=== PATIENT | female | born 1985 | race Caucasian/White ===

== ENCOUNTER → 2019-02-06 | Outpatient (CLI) | payer MEDICARE, SELFPAY | PROVIDERS: Family Provider Nurse Practitioner; Visit Provider Psychiatry & Neurology Psychiatry | DX: F43.12 Post-traumatic stress disorder, chronic (principal); F33.2 Major depressive disorder, recurrent severe without psychotic features; F12.20 Cannabis dependence, uncomplicated ==

== ENCOUNTER 2019-02-25 08:13 | Emergency (ER) | payer MEDICARE, MEDICAID, SELFPAY ==
[2019-02-25 08:15] VITALS: BP 119/74; PULSE 83; RESP 16; TEMP 36.8; O2SAT 94; BMI 44.2
--- NOTE | 2019-02-25 08:16 | ED_ITS ---
HPI - Dental/Oral General: Chief complaint: Dental/Oral Stated complaint: dental abscess Time Seen by Provider: 02/25/19 08:16 Source: patient Mode of arrival: ambulatory Limitations: no limitations History of Present Illness: HPI Narrative: here for R upper dental pain/swelling x yesterday MD Complaint: tooth pain Teeth map: 1. Onset (ago): day(s) Duration: constant Relieving factors: nothing Exacerbating factors: nothing Context: history of dental caries and poor dental care Associated symptoms: Denies ear or mastoid pain, fever(s) or painful swallowing Treatment prior to arrival: oral analgesic Review of Systems Const: Denies: fever, chills, body aches or fatigue Eyes: Denies: change in vision, blurry vision, photophobia, eye discomfort or eye discharge ENMT: Reports: dental pain and other (R facial swelling ); Denies: throat pain, enlarged tonsils, painful swallowing, swelling of lips/tongue, oral sores/lesions, ear pain, ear discharge, nasal discharge, nasal congestion, post nasal drip or facial/sinus pain Resp: Denies: productive cough or non-productive cough GI: Denies: nausea, vomiting or difficulty swallowing Neuro: Denies: headache All/Imm: Denies: facial swelling or seasonal allergies PFSH ED PFSH: Statuses (acute, chronic, etc) shown below reflect problem list status as previously entered and may not be historically accurate Social History Smoking and tobacco status: former smoker Physical Exam Const: COMMON NORMALS: no apparent distress, oriented x3, alert and well nourished HENMT: COMMON NORMALS: normocephalic, head/scalp atraumatic, hearing grossly normal bilaterally, external ears normal, EAC's normal, TM's normal bilaterally, external nose normal, nasal mucous membranes and turbinates normal and moist oral mucous membranes HEAD & SCALP: normocephalic and atraumatic NOSE: external nose normal and nasal mucous membranes and turbinates normal EXTERNAL EAR: Yes external ears normal EXTERNAL AUDITORY CANAL: EAC's normal TYMPANIC MEMBRANE: TM's normal bilaterally TEETH & GINGIVA: Yes other (TTP L upper dentition and gingiva; mild swelling to R face; no cellulitis ) THROAT: posterior oropharynx normal, tonsils normal and uvula midline Lymph: LYMPHATIC: no lymphadenopathy noted Neuro: COMMON NORMALS: oriented x3 SENSORIUM/ORIENTATION: Yes alert Course Vital Signs: Vital signs: Vital Signs Temperature 98.2 F 02/25/19 08:15 Pulse Rate 83 02/25/19 08:15 Respiratory Rate 16 02/25/19 08:15 Blood Pressure 119/74 02/25/19 08:15 Pulse Oximetry 94 02/25/19 08:15 Discharge Plan Discharge Patient Disposition: Home, Self-Care Clinical Impression: Dental caries, Dental abscess Condition: Stable Prescriptions: New clindamycin HCl 300 mg capsule 300 mg PO Q6H 7 Days Qty: 28 RF: 0 Discharge Orders: Discharge Order (Routine); Ordered 02/25/19 Ordered By: Lashanda Sutton Discharge Diet: Advance as tolerated Patient Instructions: Dental Abscess (ED), Dental Caries (ED) Activity Restrictions/Additional Instructions: FOLLOW UP WITH A DENTIST. CAN RETURN TO ED FOR WORSENING SWELLING/PAIN DESPITE ANTIBIOTICS X 48 HOURS. Coding Level of Care Code ED Construction Administrative Assistant for Tavo Cevallos
[2019-02-25] MEDS: clindamycin 150 mg/mL SDV 6 mL 600 MG IM (08:37)
[2019-02-25] MEDS: ketorolac 30 mg/mL INJ IM (09:11)
[2019-02-25] MEDS: ondansetron 4 MG Tablet PO (09:11)
[2019-02-25 09:43] VITALS: PULSE 66; RESP 18; O2SAT 96
== END 2019-02-25 09:44 | disposition home or self-care (01) ==
LOC: ER 09:01
PROVIDERS: Emergency Provider Physician Assistant; Family Provider Nurse Practitioner; PCP Nurse Practitioner
DX: K04.7 Periapical abscess without sinus (principal); K02.9 Dental caries, unspecified; Z87.891 Personal history of nicotine dependence
CPT/HCPCS: 96372; 99281; J1885; J3490; Q0162

== ENCOUNTER 2019-03-08 09:56 | Inpatient (IN) | payer MEDICARE, MEDICAID, SELFPAY ==
[2019-03-08 09:59] VITALS: BP 128/82; PULSE 82; RESP 18; TEMP 36.4; O2SAT 99; BMI 47.8
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
[2019-03-08 10:45] LABS: HCG Qualitative Urine. Negative (Negative)
[2019-03-08 10:51] LABS: Add Urine Microscopic? YES; Bilirubin Urine Neg (NEGATIVE); Blood Urine 3+ (Negative); Glucose Urine UA Norm (Normal); Ketones Urine 1+ (Negative); Leukocyte Esterase Urine Negative (Negative); Nitrate Urine Negative (Negative); Protein Urine Neg (Negative); Specific Gravity, Urine 1.015 (1.005-1.030); Urine Appearance Hazy (CLEAR); Urine Color Straw (Yellow); Urobilinogen Urine Norm (Negative); pH Urine 6 (5-7)
[2019-03-08 10:52] LABS: RBC Urine 40-50 /hpf (0-2)
[2019-03-08 10:53] LABS: Add Urine Culture? Yes; Bacteria Urine 1+; Mucus Urine 1+; WBC Urine 0-4 /hpf (0-5)
[2019-03-08 10:54] LABS: Basophils % 0.4 %; Eosinophils # 0.1 10^3/uL (0.0-0.8); Eosinophils % 1.3 %; Hematocrit 40.3 % (37.0-47.0); Lymphocytes # 1.3 10^3/uL (0.8-4.8); Lymphocytes % 23.7 %; Mean Corpuscular HGB Conc 32.3 g/dL (30.0-36.0); Mean Corpuscular Hemoglobin 31.7 pg (28.0-34.0); Mean Corpuscular Volume 98.3 fL (81-99); Mean Platelet Volume 11.2 fL (7.4-10.4); Monocytes # 0.4 10^3/uL (0.2-0.9); Monocytes % 7.4 %; Neutrophils # 3.7 10^3/uL (1.8-7.7); Neutrophils % 66.8 %; Nucleated Red Blood Cells % 0 %; Platelet Count 226 10^3/cmm (130-400); Red Cell Distribution Width 12.1 % (12.1-15.1); White Blood Count 5.5 10^3/uL (4.0-10.0)
[2019-03-08 11:10] LABS: Amphetamines Screen Urine Negative (Negative); Barbiturates Screen Urine Negative (Negative); Benzodiazepines Screen Urine Negative (Negative); Cocaine Screen Urine Negative (Negative); Opiate Screen Urine Negative (Negative); PCP Screen Urine Negative (Negative); THC Screen Urine Negative (Negative)
[2019-03-08 11:18] LABS: Alanine Aminotransferase 21 U/L (0-33); Albumin Level 4.4 g/dL (3.5-5.2); Alkaline Phosphatase 74 IU/L (35-105); Anion Gap 13.8 (5-19); Aspartate Amino Transferase 19 U/L (0-32); Blood Urea Nitrogen 12 mg/dL (6-20); Calcium 9.4 mg/Dl (8.6-10.0); Carbon Dioxide 28 mmol/L (22-29); Chloride 100 mmol/L (98-107); Globulin 2.4 g/dL (1.3-4.6); Glomerular Filtration Rate 97.6 mL/min (90-130); Glucose 98 mg/dL (74-109); Potassium 3.8 mmol/L (3.5-5.1); Sodium 138 mmol/L (136-145); Total Bilirubin 0.6 mg/dL (0.15-1.2); Total Protein 6.8 g/dL (6.6-8.7)
--- NOTE | 2019-03-08 11:18 | ECG_ITS ---
Measurements Intervals [place] Rate: 95 P: 39 KS: 172 QRS: 31 QRSD: 89 T: 14 QT: 375 QTc: 473 SINUS RHYTHM Compared to ECG 07/05/2018 13:18:38 Sinus arrhythmia no longer present Electronically Signed On 03-09-2019 17:26:04 [place] by Obi Lee M.D. [email or web address]
--- NOTE | 2019-03-08 11:18 | PC.NURSE ---
Pt reporting chest pain and Dr. BEVERLEY informed. EKG ordered.
[2019-03-08 11:25] VITALS: RESP 18
[2019-03-08 11:26] LABS: Acetaminophen < 5.0 ug/mL (10-30); Alcohol Level < 10 mg/dL (0-10); Salicylate < 0.3 mg/dL (3-10)
[2019-03-08 12:51] VITALS: BP 97/55; PULSE 66; RESP 18; TEMP 36.6; O2SAT 98
[2019-03-08 13:12] VITALS: BP 106/61; PULSE 81; RESP 18; TEMP 37.2; O2SAT 98
[2019-03-08 14:00] VITALS: BP 153/95; PULSE 75; RESP 18; TEMP 37; O2SAT 96
[2019-03-08] MEDS: acetaminophen 325 mg Tablet 650 MG PO (15:13)
[2019-03-08] MEDS: clindamycin 150 mg Capsule 300 MG PO ×2 (17:47→20:19)
[2019-03-08 19:56] VITALS: BP 126/86; PULSE 70; RESP 16; TEMP 36.6; O2SAT 98
[2019-03-08] MEDS: trazodone 150 mg Tablet PO (20:51)
[2019-03-09 06:00] VITALS: BP 107/70; PULSE 66; RESP 17; TEMP 36.9; O2SAT 96
[2019-03-09] MEDS: clindamycin 150 mg Capsule 300 MG PO ×4 (09:45→21:33)
[2019-03-09] MEDS: OLANZapine ODT 5 MG TABLET PO (09:45)
[2019-03-09] MEDS: prazosin 1 mg Capsule 2 MG PO (09:45)
--- NOTE | 2019-03-09 09:45 | PC.NURSE ---
PRN ZYPREXA ZYDIS ZYPREXA ZYDIS 5MG PO PER PT C/O AGITATION/ANXIETY. WILL CONTINUE TO MONITOR FOR MEDICATION EFFECTIVENESS.
--- NOTE | 2019-03-09 10:50 | PC.NURSE ---
prn zyprexa zydis follow up medication effective. no further c/o anxiety/agitation. patient got out of bed and took a shower.
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
[2019-03-09] MEDS: neomycin-poly-bacitracin oint 28 gm 1 APPLIC TOPICAL (13:06)
[2019-03-09 14:00] VITALS: BP 100/64; PULSE 66; RESP 20; TEMP 36.9; O2SAT 94
[2019-03-09 20:33] VITALS: BP 103/67; PULSE 65; RESP 22; TEMP 37.1; O2SAT 95
[2019-03-09] MEDS: prazosin 5 mg Capsule PO (21:00)
[2019-03-09] MEDS: paliperidone ER 3 mg Tablet PO (21:31)
[2019-03-09] MEDS: buPROPion SR (12 HR) 150 mg Tablet PO (21:34)
[2019-03-10 06:00] VITALS: BP 91/54; PULSE 79; RESP 17; TEMP 36.8; O2SAT 94
[2019-03-10] MEDS: hyDROXYzine 25 mg Capsule 50 MG PO (09:39)
--- NOTE | 2019-03-10 09:39 | PC.NURSE ---
PRN VISTARIL VISTARIL 50MG PO PER PT C/O ANXIETY. WILL CONTINUE TO MONITOR FOR MEDICATION EFFECTIVENESS.
[2019-03-10] MEDS: clindamycin 150 mg Capsule 300 MG PO ×4 (09:40→20:30)
[2019-03-10] MEDS: acetaminophen 325 mg Tablet 650 MG PO (09:40)
[2019-03-10] MEDS: neomycin-poly-bacitracin oint 28 gm 1 APPLIC TOPICAL (09:41)
--- NOTE | 2019-03-10 10:40 | PC.NURSE ---
PRN VISTARIL FOLLOW UP MEDICATION EFFECTIVE. NO FURTHER C/O ANXIETY.
[2019-03-10 14:00] VITALS: BP 114/66; PULSE 70; RESP 18; TEMP 36.9; O2SAT 100
--- NOTE | 2019-03-10 15:29 | PC.NURSE ---
PRN ATIVAN ATIVAN 0.5MG PO PER PT C/O ANXIETY. WILL CONTINUE TO MONITOR FOR MEDICATION EFFECTIVENESS.
--- NOTE | 2019-03-10 16:30 | PC.NURSE ---
PRN ATIVAN FOLLOW UP MEDICATION EFFECTIVE. NO FURTHER C/O ANXIETY.
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
[2019-03-10] MEDS: prazosin 5 mg Capsule PO (20:29)
[2019-03-10] MEDS: propranolol 20 mg Tablet 10 MG PO (20:30)
[2019-03-10] MEDS: buPROPion SR (12 HR) 150 mg Tablet PO (20:30)
[2019-03-10] MEDS: paliperidone ER 3 mg Tablet PO (20:36)
[2019-03-10 21:12] VITALS: BP 105/70; PULSE 76; RESP 18; TEMP 36.9
[2019-03-11 06:00] VITALS: BP 108/58; PULSE 66; RESP 15; TEMP 36.9; O2SAT 93
[2019-03-11] MEDS: clindamycin 150 mg Capsule 300 MG PO ×4 (09:52→20:44)
[2019-03-11] MEDS: neomycin-poly-bacitracin oint 28 gm 1 APPLIC TOPICAL (09:52)
--- NOTE | 2019-03-11 13:15 | PC.SOCIAL ---
Important Medicare Message Reviewed page 2 Important Medicare Message with patient. Verbalized understanding and signed page 2. Copy in chart and original to patient.
--- NOTE | 2019-03-11 13:15 | PC.SOCIAL ---
Important Medicare Message Reviewed page 2 Important Medicare Message with patient. Verbalized understanding and signed page 2. Original to patient and copy in chart.
[2019-03-11 14:00] VITALS: BP 124/87; PULSE 91; RESP 20; TEMP 36.8; O2SAT 97
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
[2019-03-11] MEDS: blistex lip oint 7 gm Tube 1 APPLIC TOPICAL (18:08)
[2019-03-11 19:51] VITALS: BP 132/83; PULSE 66; RESP 18; TEMP 36.9; O2SAT 94
[2019-03-11] MEDS: gabapentin 300 mg Capsule 600 MG PO (20:43)
[2019-03-11] MEDS: buPROPion SR (12 HR) 150 mg Tablet PO (20:44)
[2019-03-11] MEDS: acetaminophen 325 mg Tablet 650 MG PO (20:44)
[2019-03-11] MEDS: paliperidone ER 3 mg Tablet PO (20:44)
[2019-03-11] MEDS: prazosin 5 mg Capsule PO (20:44)
[2019-03-12 06:00] VITALS: BP 111/73; PULSE 76; RESP 18; TEMP 36.9; O2SAT 98
[2019-03-12] MEDS: clindamycin 150 mg Capsule 300 MG PO ×4 (08:07→21:32)
[2019-03-12] MEDS: hyDROXYzine 25 mg Capsule 50 MG PO (08:08)
--- NOTE | 2019-03-12 08:14 | PC.NURSE ---
PT NOTE: PT C/O HAVING PANIC ATTACK AND NIGHTMARES. PRN VISTARIL 50MG PO GIVEN FOR ANXIETY.
--- NOTE | 2019-03-12 09:05 | PC.NURSE ---
PT NOTE: PATIENT ATTENDING GROUP, CONVERSATING AND APPEARS TO BE LESS ANXIOUS.
[2019-03-12] MEDS: neomycin-poly-bacitracin oint 28 gm 1 APPLIC TOPICAL (10:04)
[2019-03-12 14:00] VITALS: BP 122/84; PULSE 88; RESP 20; TEMP 36.7; O2SAT 100
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
[2019-03-12 21:20] VITALS: BP 100/71; PULSE 79; RESP 19; TEMP 37.2; O2SAT 100
[2019-03-12] MEDS: acetaminophen 325 mg Tablet 650 MG PO (21:31)
[2019-03-12] MEDS: prazosin 5 mg Capsule PO (21:31)
[2019-03-12] MEDS: buPROPion SR (12 HR) 150 mg Tablet PO (21:31)
[2019-03-12] MEDS: paliperidone ER 3 mg Tablet PO (21:32)
[2019-03-12] MEDS: gabapentin 300 mg Capsule 600 MG PO (21:32)
[2019-03-13 06:18] VITALS: BP 115/62; PULSE 62; RESP 18; TEMP 36.8; O2SAT 97
[2019-03-13] MEDS: hyDROXYzine 25 mg Capsule 50 MG PO (08:48)
[2019-03-13] MEDS: acetaminophen 325 mg Tablet 650 MG PO (08:49)
[2019-03-13 10:45] VITALS: BP 115/62; PULSE 62; RESP 18; TEMP 36.8; O2SAT 97
[2019-03-13] MEDS: clindamycin 150 mg Capsule 300 MG PO (11:23)
[2019-03-13] MEDS: neomycin-poly-bacitracin oint 28 gm 1 APPLIC TOPICAL (11:26)
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
== END 2019-03-13 13:32 | disposition home or self-care (01) | DRG 882 ==
LOC: ER 12:34 → NP 12:42
PROVIDERS: Nurse Practitioner Family; Admitting Provider Psychiatry & Neurology Psychiatry; Emergency Provider Emergency Medicine; Family Provider Nurse Practitioner; PCP Nurse Practitioner; Visit Provider Psychiatry & Neurology Psychiatry
DX: F43.25 Adjustment disorder with mixed disturbance of emotions and conduct (principal); F33.1 Major depressive disorder, recurrent, moderate; F43.10 Post-traumatic stress disorder, unspecified; F60.89 Other specific personality disorders; F90.9 Attention-deficit hyperactivity disorder, unspecified type
CPT/HCPCS: 12345; 36415; 80053; 80307; 81003; 81025; 85025; 87086; 93005; 99284

== ENCOUNTER → 2019-03-20 10:24 | Outpatient (BNVA) | payer MEDICARE, SELFPAY | PROVIDERS: Family Provider Nurse Practitioner; PCP Nurse Practitioner; Visit Provider Psychiatry & Neurology Psychiatry | DX: F43.12 Post-traumatic stress disorder, chronic (principal); F33.2 Major depressive disorder, recurrent severe without psychotic features; F12.20 Cannabis dependence, uncomplicated | CPT/HCPCS: 99214 ==

== ENCOUNTER 2019-04-04 12:53 | Emergency (ER) | payer MEDICARE, SELFPAY ==
[2019-04-04 13:09] VITALS: BP 145/82; PULSE 90; RESP 18; TEMP 36.6; O2SAT 97; BMI 42.5
--- NOTE | 2019-04-04 14:14 | W.ED.HA ---
Documented by User: JAMAAL Patrick 04/05/19 07:19 HPI - Headache General: Chief Complaint: Headache Stated Complaint: RICCI for years Time Seen by Provider: 04/04/19 14:04 History of Present Illness: HPI Narrative: Patient is a 33-year-old female comes to the ED with a headache. Patient states the headache started 3-4 days ago. States that she has photophobia and nausea from it. He has not had any vomiting. She describes headache in the occipital region and then it radiates up to the head. Denies any other neurological symptoms. Associated symptoms: Reports nausea; Deny chest pain, fever(s), rash or vomiting Review of Systems Const: Denies: fever, chills or fatigue Eyes: Denies: change in vision or eye discomfort ENMT: Reports: facial/sinus pain; Denies: throat pain, painful swallowing, nasal discharge or nasal congestion Card: Denies: chest pain, palpitations, edema, swelling of feet/ankles, shortness of breath on exertion or shortness of breath when lying down Resp: Denies: shortness of breath, productive cough or non-productive cough GI: Reports: nausea and diarrhea; Denies: abdominal pain, vomiting, constipation or blood in stool : Denies: flank pain, painful urination or blood in urine Musc: Reports: neck pain; Denies: back pain or extremity swelling Skin/Breast: Denies: rash or new lesion Neuro: Reports: headache; Denies: numbness in extremities or weakness in extremities PFS ED PFSH: Medical History Adjustment disorder with mixed disturbance of emotions and conduct Cluster B personality disorder PTSD (post-traumatic stress disorder) Social History Smoking and tobacco status: never smoked Quit status (tobacco): has quit using tobacco Year quit tobacco: ? Second hand smoke exposure: No Smoking risk assessment/counseling performed?: Yes Tobacco counseling given: counseling >3 minutes Female Reproductive History: Date of last menstrual period: 03/08/19 Physical Exam Narrative: EXAM NARRATIVE: Patient is a 33-year-old female sitting comfortably in chair when I entered the room. She appears in no acute pain or distress. The lights did not appear to bother her eyes at all considering we were in a bright room and she was not squinting. Const: COMMON NORMALS: oriented x3 HENMT: COMMON NORMALS: normocephalic HEAD & SCALP: normocephalic MOUTH: oral and palatal mucosa normal THROAT: posterior oropharynx normal and uvula midline Neck/C-Spine: COMMON NORMALS: supple GENERAL: Yes normal visual inspection Resp: COMMON NORMALS: normal respiratory effort, no retractions, no use of accessory muscles and clear to auscultation bilaterally AUSCULTATION: clear to auscultation bilaterally Cardio: COMMON NORMALS: regular rate, regular rhythm, S1 normal heart sound, S2 normal heart sound, no gallops, no clicks, no murmurs and peripheral pulses 2+ throughout RATE: regular rate RHYTHM: regular rhythm HEART SOUNDS: S1 normal and S2 normal PERIPHERAL PULSES: pulses 2+ throughout GI: COMMON NORMALS: normal to inspection, nondistended, normoactive bowel sounds, soft to palpation, non-tender and no masses INSPECTION: Yes central obesity PALPATION: Yes soft : COMMON NORMALS: Yes no CVA tenderness BLADDER/KIDNEY EXAM: Yes no CVA tenderness Back/Pelvis: COMMON NORMALS: no CVA tenderness Extremity: COMMON NORMALS: normal to inspection Neuro: COMMON NORMALS: oriented x3, CN's II-XII intact bilaterally, moves all extremities, no focal motor deficits and no sensory deficits noted SENSORY EXAM: Yes extremities (intact) MOTOR EXAM: strength 5/5 throughout Skin: GENERAL SKIN EXAM: dry skin Course ED course: Patient's migraine improved with treatment. Vital Signs: Vital signs: Vital Signs Temperature 97.9 F 04/04/19 17:18 Pulse Rate 90 04/04/19 17:18 Respiratory Rate 16 04/04/19 17:18 Blood Pressure 140/82 04/04/19 17:18 Pulse Oximetry 97 04/04/19 17:18 MDM - Headache Imaging Data^: CT Head: Attestation: I personally reviewed and interpreted this imaging study as follows: Radiologist's impression: [address] [address] [address] Scan Report Signed Patient: Phuc Logan Unit #: [id number] : 1985 Age/Sex: 33 / F ADM Date: 04/04/19 Loc: ER Room/Bed: Attending Dr: Ordering Provider/Ordering MD: Darwin Chino Date of Service: 04/04/19 Procedure(s): CT head wo con* [id number] Accession Number(s): [id number] Report Number: [id number] PROCEDURE INFORMATION: Exam: CT Head Without Contrast Exam date and time: 04/04/2019 3:40 PM Age: 33 years old Clinical indication: Pain; Other: Headache x 1 year; Additional info: Migraine TECHNIQUE: Imaging protocol: Computed tomography of the head without contrast. Total DLP: 860.26 mGy-cm Radiation optimization: All CT scans at this facility use at least one of these dose optimization techniques: automated exposure control; mA and/or kV adjustment per patient size (includes targeted exams where dose is matched to clinical indication); or iterative reconstruction. COMPARISON: CT head wo con* [id number] 11/27/2017 4:57 AM FINDINGS: Brain: Normal. No hemorrhage. Unremarkable white matter. No mass effect. Ventricles: Normal. No ventriculomegaly. Bones/joints: Unremarkable. No acute fracture. Sinuses: Visualized sinuses are unremarkable. No fluid levels. Mastoid air cells: Visualized mastoid air cells are well aerated. Soft tissues: Unremarkable. CT/CT head wo con* [id number] IMPRESSION: No acute intracranial abnormality. Radiation Dose CTDIVOL = (mGy): DLP = 860.26 (mGy-cm) Dictated By: Black Simpson MD Signed By: Black Simpson MD Signed Date/Time: 04/04/191612 DD/ 11 Discharge Plan Discharge Patient Disposition: Home, Self-Care Clinical Impression: Migraine Qualifiers: Migraine type: without aura Status migrainosus presence: with status migrainosus Intractability: intractable Qualified Code(s): G43.011 - Migraine without aura, intractable, with status migrainosus Condition: Stable Prescriptions: No Action bupropion HCl 150 mg Tablet Sustained-Release 12 Hr 150 mg PO BEDTIME Qty: 30 RF: 2 Triple Antibiotic 3.5mg-400 unit- 5,000 unit/gram Ointment 1 applic topical DAILY Qty: 1 RF: 0 clindamycin HCl 150 mg Capsule 300 mg PO QID Qty: 20 RF: 0 prazosin 5 mg Capsule 5 mg PO BEDTIME Qty: 30 RF: 2 gabapentin 300 mg Capsule 600 mg PO BEDTIME Qty: 60 RF: 2 propranolol 20 mg Tablet 10 mg PO TID PRN (Reason: Blood Pressure) Qty: 90 RF: 2 buspirone 15 mg Tablet 15 mg PO TID Qty: 90 RF: 2 paliperidone 3 mg Tablet Extended Release 24hr 3 mg PO BEDTIME Qty: 30 RF: 2 Discharge Orders: Discharge Order (Routine); Ordered 04/04/19 Ordered By: Darwin Chino Referrals: Rebeka Meza FNP [Primary Care Provider] - Discharge Diet: Regular Discharge Activity: Resume usual activity Patient Instructions: Migraine Headache (ED) Activity Restrictions/Additional Instructions: Follow-up with your PCP in 7 days for reevaluation. Drink plenty of fluids and stay hydrated. Take ibuprofen or Tylenol as needed for headaches. Discharge Date/Time: 04/04/19 17:19 Coding Level of Care Code ED Honing Machine Operator Tool for Chg Fwd Exam Detailed Documented by User: Juma Nichole DO 04/05/19 12:30 HPI - Headache General: Chief Complaint: Headache Stated Complaint: RICCI for years Time Seen by Provider: 04/04/19 14:04 [facility] ED PFSH: Medical History Adjustment disorder with mixed disturbance of emotions and conduct Cluster B personality disorder PTSD (post-traumatic stress disorder) Social History Smoking and tobacco status: never smoked Quit status (tobacco): has quit using tobacco Year quit tobacco: ? Second hand smoke exposure: No Smoking risk assessment/counseling performed?: Yes Tobacco counseling given: counseling >3 minutes Course ED course: I supervised care provided to Phuc Logan by the ENGINEERING PSYCHOLOGIST/PA. Vital Signs: Vital signs: Vital Signs Temperature 97.9 F 04/04/19 17:18 Pulse Rate 90 04/04/19 17:18 Respiratory Rate 16 04/04/19 17:18 Blood Pressure 140/82 04/04/19 17:18 Pulse Oximetry 97 04/04/19 17:18 Discharge Plan Discharge Patient Disposition: Home, Self-Care Clinical Impression: Migraine Qualifiers: Migraine type: without aura Status migrainosus presence: with status migrainosus Intractability: intractable Qualified Code(s): G43.011 - Migraine without aura, intractable, with status migrainosus Condition: Stable Prescriptions: No Action bupropion HCl 150 mg Tablet Sustained-Release 12 Hr 150 mg PO BEDTIME Qty: 30 RF: 2 Triple Antibiotic 3.5mg-400 unit- 5,000 unit/gram Ointment 1 applic topical DAILY Qty: 1 RF: 0 clindamycin HCl 150 mg Capsule 300 mg PO QID Qty: 20 RF: 0 prazosin 5 mg Capsule 5 mg PO BEDTIME Qty: 30 RF: 2 gabapentin 300 mg Capsule 600 mg PO BEDTIME Qty: 60 RF: 2 propranolol 20 mg Tablet 10 mg PO TID PRN (Reason: Blood Pressure) Qty: 90 RF: 2 buspirone 15 mg Tablet 15 mg PO TID Qty: 90 RF: 2 paliperidone 3 mg Tablet Extended Release 24hr 3 mg PO BEDTIME Qty: 30 RF: 2 Discharge Orders: Discharge Order (Routine); Ordered 04/04/19 Ordered By: Darwin Chino Referrals: Rebeka Meza FNP [Primary Care Provider] - Discharge Diet: Regular Discharge Activity: Resume usual activity Patient Instructions: Migraine Headache (ED) Activity Restrictions/Additional Instructions: Follow-up with your PCP in 7 days for reevaluation. Drink plenty of fluids and stay hydrated. Take ibuprofen or Tylenol as needed for headaches. Discharge Date/Time: 04/04/19 17:19 Coding Level of Care Code ED Honing Machine Operator Tool for Chg Fwd Exam Detailed
--- NOTE | 2019-04-04 14:22 | PC.NURSE ---
Pt states she is having nosebleed in past few days of unknown origin
--- NOTE | 2019-04-04 14:30 | CTR_ITS ---
PROCEDURE INFORMATION: Exam: CT Head Without Contrast Exam date and time: 04/04/2019 3:40 PM Age: 33 years old Clinical indication: Pain; Other: Headache x 1 year; Additional info: Migraine TECHNIQUE: Imaging protocol: Computed tomography of the head without contrast. Total DLP: 860.26 mGy-cm Radiation optimization: All CT scans at this facility use at least one of these dose optimization techniques: automated exposure control; mA and/or kV adjustment per patient size (includes targeted exams where dose is matched to clinical indication); or iterative reconstruction. COMPARISON: CT head wo con* [id number] 11/27/2017 4:57 AM FINDINGS: Brain: Normal. No hemorrhage. Unremarkable white matter. No mass effect. Ventricles: Normal. No ventriculomegaly. Bones/joints: Unremarkable. No acute fracture. Sinuses: Visualized sinuses are unremarkable. No fluid levels. Mastoid air cells: Visualized mastoid air cells are well aerated. Soft tissues: Unremarkable. CT/CT head wo con* [id number] IMPRESSION: No acute intracranial abnormality. Radiation Dose CTDIVOL = (mGy): DLP = 860.26 (mGy-cm)
[2019-04-04] MEDS: sodium chloride 0.9% 1,000 ML 999 ML IV (14:38)
[2019-04-04] MEDS: ketorolac 30 mg/mL INJ IVP (14:42)
[2019-04-04] MEDS: dexamethasone 10 mg/mL INJ IVP (14:45)
[2019-04-04] MEDS: metoclopramide 5 mg/mL SDV 2 mL 10 MG IVP (14:45)
[2019-04-04 17:18] VITALS: BP 140/82; PULSE 90; RESP 16; TEMP 36.6; O2SAT 97
== END 2019-04-04 17:19 | disposition home or self-care (01) ==
PROVIDERS: Emergency Provider Physician Assistant; Family Provider Nurse Practitioner; PCP Nurse Practitioner
DX: G43.909 Migraine, unspecified, not intractable, without status migrainosus (principal); Z87.891 Personal history of nicotine dependence
CPT/HCPCS: 70450; 96361; 96374; 96375; 99282; 99283; J1100; J1885; J2765; J7030